=== PATIENT | female | born 1980 | race Two or more races ===

== ENCOUNTER 2023-05-23 23:53 | Emergency (ER) | payer MEDICAID, OTHER ==
[~2023-05-23] VITALS: Ht 170.2 cm; Wt 77.3 kg
[2023-05-24] MEDS ORDERED: DexAMETHasone SOD PHOS 10MG/1ML VIAL INJ IM ONE (00:30)
[2023-05-24 04:06] VITALS: BP 103/66; PULSE 77; RESP 18; TEMP 98.5; O2SAT 100
[2023-05-24] MEDS ORDERED: PRED20TA2 PO (05:04)
[2023-05-24] MEDS ORDERED: ZOFR4T PO (05:04)
[2023-05-24] MEDS ORDERED: DIPH25TA5 PO (05:04)
== END 2023-05-24 05:17 | disposition home or self-care (01) ==
LOC: ER 23:53
DX: R06.02 Shortness of breath (principal); R11.2 Nausea with vomiting, unspecified; T37.8X5A Adverse effect of other specified systemic anti-infectives and antiparasitics, initial encounter; Z88.8 Allergy status to other drugs, medicaments and biological substances; Z79.899 Other long term (current) drug therapy; Y92.89 Other specified places as the place of occurrence of the external cause
CPT/HCPCS: 96372; 99283; J1100

== ENCOUNTER → 2023-11-20 | Outpatient (CLI) | payer MEDICAID ==
[~2023-11-20] MED LIST: DIPH25TA5 PO; PRED20TA2 PO; ZOFR4T PO
[2023-11-20 09:19] LABS: Basophils # (auto) 0.1 10 ^3/uL (0-0.2); Eosinophils # (auto) 0.1 10 ^3/uL (0-0.8); Eosinophils % (auto) 2.1 % (0.0-7.0); Hematocrit 41.1 % (36.0-46.0); Hemoglobin 13.7 g/dL (12.2-16.2); Lymphocytes # (auto) 1.7 10 ^3/uL (0.4-5.4); Mean Corpuscular Hemoglobin 30.8 pg (28.0-32.0); Mean Corpuscular Hgb Conc. 33.4 g/dL (32.0-36.0); Mean Corpuscular Volume 92.4 fL (80.0-100.0); Monocytes # (auto) 0.5 10 ^3/uL (0-1.3); Monocytes % (auto) 9.2 % (0.0-12.0); Neutrophils # (auto) 3.1 10 ^3/uL (1.6-8.6); Neutrophils % (auto) 56.7 % (37.0-80.0); Red Blood Cells 4.45 10^6/uL (4.0-5.20); Red Cell Distribution Width 13.1 % (11.8-14.3); White Blood Cell 5.5 10^3/uL (4.4-10.8)
[2023-11-20 09:34] LABS: Urine Bacteria NONE SEEN /hpf (None Seen); Urine Blood Negative /uL (Negative); Urine Clarity Clear (Clear); Urine Color Colorless (Yellow); Urine Protein, UAD Negative (Negative); Urine Specific Gravity 1.014 (1.001-1.035); Urine Urobilinogen Normal (Negative); Urine WBC 4 /hpf (0 - 5); Urine pH 5.5 (5.0-8.0)
[2023-11-20 10:01] LABS: Alanine Aminotransferase 16 U/L (7-40); Albumin 4.4 g/dL (3.2-4.8); Alkaline Phosphatase 52 U/L (46-116); Amylase 65 U/L (30-118); Anion Gap 6 (5-15); Aspartate Aminotransferase 12 U/L (13-40); BUN/Creatinine Ratio 8.8 (10.0-20.0); Bilirubin, Total 0.5 mg/dL (0.2-1.0); Blood Urea Nitrogen 7 mg/dL (9-23); Calcium 8.8 mg/dL (8.5-10.1); Carbon Dioxide 26 mmol/L (20-30); Chloride 106 mmol/L (98-107); Glucose 85 mg/dL (74-106); Potassium 3.9 mmol/L (3.5-5.1); Sodium 138 mmol/L (136-145)
[2023-11-20 10:44] LABS: Lipase 32 U/L (12-53)
== END | disposition home or self-care (01) ==
LOC: LAB 08:49
PROVIDERS: ATTEND Internal Medicine
DX: R10.9 Unspecified abdominal pain (principal)
CPT/HCPCS: 36415; 80053; 81001; 82150; 83690; 85025

== ENCOUNTER → 2023-12-08 | Outpatient (CLI) | payer MEDICAID | END | disposition home or self-care (01) | LOC: LAB 12:43 | PROVIDERS: ATTEND Internal Medicine | DX: N39.0 Urinary tract infection, site not specified (principal) | CPT/HCPCS: 87086 ==

== ENCOUNTER 2025-02-18 09:07 | Outpatient (CLI) | payer MEDICAID ==
[2025-02-18 09:32] LABS: Basophils # (auto) 0.1 10 ^3/uL (0-0.2); Basophils % (auto) 1.2 % (0.0-2.0); Eosinophils # (auto) 0.1 10 ^3/uL (0-0.8); Eosinophils % (auto) 2.8 % (0.0-7.0); Hematocrit 41.2 % (36.0-46.0); Lymphocytes # (auto) 1.6 10 ^3/uL (0.4-5.4); Lymphocytes % (auto) 33.7 % (10.0-50.0); Mean Corpuscular Hemoglobin 31.5 pg (28.0-32.0); Mean Corpuscular Volume 92.7 fL (80.0-100.0); Monocytes # (auto) 0.3 10 ^3/uL (0-1.3); Monocytes % (auto) 7.2 % (0.0-12.0); Neutrophils # (auto) 2.6 10 ^3/uL (1.6-8.6); Neutrophils % (auto) 55.1 % (37.0-80.0); Nucleated Red Blood Cells % 0.1 %; Platelet Count (auto) 302 10^3/uL (140-450); Red Blood Cells 4.45 10^6/uL (4.0-5.20); Red Cell Distribution Width 13.4 % (11.8-14.3); White Blood Cell 4.7 10^3/uL (4.4-10.8)
[2025-02-18 10:18] LABS: Alanine Aminotransferase 14 U/L (7-40); Albumin 4.4 g/dL (3.2-4.8); Alkaline Phosphatase 60 U/L (46-116); Anion Gap 11 (5-15); Aspartate Aminotransferase 8 U/L (13-40); BUN/Creatinine Ratio 12.5 (10.0-20.0); Bilirubin, Total 0.6 mg/dL (0.2-1.0); Blood Urea Nitrogen 11 mg/dL (9-23); Calcium 9.1 mg/dL (8.7-10.4); Carbon Dioxide 21 mmol/L (20-31); Chloride 108 mmol/L (98-107); Glucose 153 mg/dL (74-106); Potassium 3.6 mmol/L (3.5-5.1); Sodium 140 mmol/L (136-145)
[2025-02-18 11:23] LABS: Free T3 3.14 pg/mL (2.3-4.2)
[2025-02-18 11:24] LABS: Follicle Stimulating Hormone 5.47 IU/L (SEE BELOW)
[2025-02-19 09:07] LABS: Estradiol 62.6 pg/mL (.); Thyroxine (T4) 7.8 ug/dL (4.5-12.0)
== END 2025-02-18 17:00 | disposition home or self-care (01) ==
LOC: LAB 09:07
PROVIDERS: ATTEND Obstetrics & Gynecology
DX: N95.1 Menopausal and female climacteric states (principal); E07.89 Other specified disorders of thyroid; E34.9 Endocrine disorder, unspecified; E53.9 Vitamin B deficiency, unspecified; Z13.220 Encounter for screening for lipoid disorders; E55.9 Vitamin D deficiency, unspecified
CPT/HCPCS: 36415; 80053; 82306; 82607; 82670; 83001; 84144; 84403; 84436; 84443; 84481; 85025; 86376

== ENCOUNTER 2025-03-25 10:19 | Outpatient (CLI) | payer MEDICAID ==
[2025-03-25 11:11] LABS: Hematocrit 42.5 % (36.0-46.0); Hemoglobin 14.7 g/dL (12.2-16.2); Mean Corpuscular Hemoglobin 31.4 pg (28.0-32.0); Mean Corpuscular Volume 90.8 fL (80.0-100.0); Nucleated Red Blood Cells % 0.0 %
[2025-03-25 11:29] LABS: Alanine Aminotransferase 17 U/L (7-40); Albumin 4.7 g/dL (3.2-4.8); Alkaline Phosphatase 68 U/L (46-116); Anion Gap 12 (5-15); BUN/Creatinine Ratio 14.3 (10.0-20.0); Blood Urea Nitrogen 11 mg/dL (9-23); Calcium 10.0 mg/dL (8.7-10.4); Carbon Dioxide 23 mmol/L (20-31); Chloride 101 mmol/L (98-107); Potassium 3.6 mmol/L (3.5-5.1); Sodium 136 mmol/L (136-145); Total Protein 7.9 g/dL (5.7-8.2); Triglycerides 91 mg/dL (< 150)
[2025-03-25 11:30] LABS: Bilirubin, Total 0.7 mg/dL (0.2-1.0); Cholesterol 126 mg/dL (< 200); Glucose 97 mg/dL (74-106)
[2025-03-25 11:31] LABS: HDL Cholesterol 34 mg/dL (40-59)
[2025-03-25 12:18] LABS: Follicle Stimulating Hormone 5.64 IU/L (SEE BELOW); Free T3 3.7 pg/mL (2.3-4.2); Free T4 (Free Thyroxine) 1.24 ng/dL (0.89-1.76)
== END 2025-03-25 19:37 | disposition home or self-care (01) ==
LOC: LAB 10:19
PROVIDERS: ATTEND Internal Medicine
DX: E55.9 Vitamin D deficiency, unspecified (principal); E07.89 Other specified disorders of thyroid; E34.9 Endocrine disorder, unspecified; E53.9 Vitamin B deficiency, unspecified; N95.1 Menopausal and female climacteric states; R79.89 Other specified abnormal findings of blood chemistry; D51.9 Vitamin B12 deficiency anemia, unspecified; Z13.220 Encounter for screening for lipoid disorders
CPT/HCPCS: 36415; 80053; 80061; 82306; 82607; 83001; 83036; 84144; 84402; 84403; 84439; 84443; 84481; 85025; 86376